=== PATIENT | female | born 1960 | race Caucasian/White ===

== ENCOUNTER 2020-01-01 07:22 | Emergency (ER) | payer OTHER ==
[~2020-01-01] VITALS: Ht 160 cm; Wt 77.8 kg
--- NOTE | 2020-01-01 07:56 | NUR ---
PT WHEELED FROM TRIAGE TO ROOM AT THIS TIME.
--- NOTE | 2020-01-01 08:01 | NUR ---
THIS IS A 59 YO F W/ C/O LT ANTERIOR UPPR LEG PAIN X5 DAYS. PT DENIES INJURY. PT REPORTS TAKING 1600MG IBUPROFEN AND AMOXICILLIN AT 0530. PT REPORTS AMOXICILLIN WAS AN OLD RX THAT SHE TOOK "TO HELP WITH THE SWELLING". PT RESTING ON [employer] W/ CALL LIGHT IN REACH, RESP EVEN AND UNLABORED, SINDI.
[2020-01-01] MEDS ORDERED: HYDROcodone/APAP 5/325 TABLET PO STA (08:07)
--- NOTE | 2020-01-01 08:20 | NUR ---
PT IN RAD.
[2020-01-01] MEDS ORDERED: HYDROcodone/APAP 5/325 TABLET ONE (08:24)
[2020-01-01 08:31] VITALS: BP 123/63
--- NOTE | 2020-01-01 08:31 | NUR ---
PT MEDICATED PER EMAR. US IN ROOM.
--- NOTE | 2020-01-01 09:45 | NUR ---
ALL TESTS RESULTED. PT IS UP FOR RECHECK AT THIS TIME.
--- NOTE | 2020-01-01 10:22 | NUR ---
Patient given discharge instructions and they have confirmed that they understand the instructions. Patient ambulatory with steady gait.
== END 2020-01-01 10:23 | disposition home or self-care (01) ==
LOC: ED 08:11
DX: M76.9 Unspecified enthesopathy, lower limb, excluding foot (principal); F17.210 Nicotine dependence, cigarettes, uncomplicated
CPT/HCPCS: 99284; 99406